=== PATIENT | female | born 1995 | race African-American/Black ===

== ENCOUNTER 2016-08-19 09:56 | Emergency (ER) | payer OTHER ==
[~2016-08-19] VITALS: Ht 167.6 cm; Wt 69.9 kg
[2016-08-19 10:12] VITALS: BP 116/70
== END 2016-08-19 11:21 | disposition left against medical advice (07) ==
LOC: ER 09:56
DX: N76.4 Abscess of vulva (principal); Z53.21 Procedure and treatment not carried out due to patient leaving prior to being seen by health care provider

== ENCOUNTER 2017-04-24 14:06 | Emergency (ER) | payer OTHER ==
[~2017-04-24] VITALS: Ht 167.6 cm; Wt 71.7 kg
[2017-04-24] MEDS ORDERED: diphenhydrAMINE 50 MG/ML VIAL IVP ONE (15:15)
[2017-04-24] MEDS ORDERED: METOCLOPRAMIDE HCL 10 MG/2 ML VIAL. IV ONE (15:15)
[2017-04-24] MEDS ORDERED: IV NORMAL SALINE 1000ML BAG 1,000 ML IV ONE (15:15)
[2017-04-24 15:19] LABS: BASO % 0 % (0-3); EOS % 1 % (0-3); HEMATOCRIT 36.9 % (36.0-47.0); HEMOGLOBIN 11.9 g/dL (12.0-15.5); LYMPH % 18 % (24-48); MEAN CORPUSCULAR HEMOGLOBIN 27 pg (25-35); MEAN CORPUSCULAR HGB CONC 32 g/dL (31-37); MEAN CORPUSCULAR VOLUME 82 fL (79-100); MONO % 8 % (0-9); NEUT % 73 % (31-73); PLATELET COUNT 206 x10^3/uL (140-400); RED BLOOD COUNT 4.48 x10^6/uL (3.50-5.40); RED CELL DISTRIBUTION WIDTH 13.4 % (11.5-14.5); WHITE BLOOD COUNT 10.9 x10^3/uL (4.0-11.0)
[2017-04-24 15:22] LABS: BILIRUBIN,URINE NEGATIVE (NEG); GLUCOSE,URINE NEGATIVE (NEG); NITRITE,URINE NEGATIVE (NEG); PROTEIN,URINE NEGATIVE (NEG-TRACE)
[2017-04-24 15:31] LABS: BACTERIA,URINE MODERATE /HPF (0-FEW); SQUAMOUS EPITHELIAL CELL,UR MOD /LPF
[2017-04-24 15:35] LABS: CALCIUM 8.8 mg/dL (8.5-10.1); CREATININE 0.5 mg/dL (0.6-1.0); POTASSIUM 3.7 mmol/L (3.5-5.1)
[2017-04-24 15:42] LABS: ALBUMIN 3.2 g/dL (3.4-5.0); DIRECT BILIRUBIN 0.1 mg/dL (0.0-0.2); TOTAL BILIRUBIN 0.2 mg/dL (0.2-1.0); TOTAL PROTEIN 6.7 g/dL (6.4-8.2)
--- NOTE | 2017-04-24 15:47 | PHYS DOC ---
Past Medical History Past Medical History: Other Additional Past Medical Histor: strep throat, preeclampsia Past Surgical History: No Surgical History Alcohol Use: None Drug Use: None Adult General Chief Complaint Chief Complaint: dizziness and h/a HPI HPI 22-year-old 4 wks by lmp on 01/16/17 presenting to the emergency department today with reported blurry vision bilaterally and mild headache with lightheadedness when she stands up. This is been going on for about 24-48 hours. She reports a history of preeclampsia and her previous . She denies nausea or vomiting. She reports eating a full meal at lunch around 12: 30. Blood sugar checked in the emergency department noted to be 60. Patient was given orange juice and a full meal here. Location generalized. Duration intermittent. No alleviating or exacerbating factors present. Patient reports 2 weeks ago she had an ultrasound that demonstrated the is in the uterus. I do not have documented confirmatory evidence of this in our charting system, but believe this to be the case. The patient denies vaginal bleeding or abdominal pain. Review of systems was negative for chest pain shortness of breath abdominal pain vaginal bleeding fevers or chills. All other review of systems is negative unless otherwise noted in history of present illness. ED course: 22-year-old female presenting to the emergency department today with dizziness bilateral blurred vision and a mild headache. On arrival the patient is afebrile with normal blood pressure (117/64). Otherwise unremarkable physical exam. See below. The patient was given IV fluids and oral enteric caloric challenge with a mildly low sugar. On reexamination the patient is feeling better. Urinalysis shows no protein in the urine. Bacteria present. I discussed the case with OB [Nabila]. She recommends following up with Dr. Dias in the next 3 days. Patient is prescribed oral Keflex for bacteria in the urine. Plan is to follow-up in clinic in the next 3 or 4 days. repeat bs improved after oral intake. The patient was then discharged home in stable condition to follow up with their primary care physician over the next 2-3 days. They were to return if their symptoms worsened or if they were concerned for any reason. [id number] discharge instructions and return precautions were given. Patient's questions were answered to their satisfaction. Patient is comfortable plan. Review of Systems Review of Systems SEE ABOVE. Current Medications Current Medications Current Medications Medications (Trade) Dose Ordered Sig/Griselda Start Time Stop Time Status Last Admin Dose Admin Diphenhydramine HCl (Benadryl) 25 mg 1X ONCE 04/24/17 15:15 04/24/17 15:16 DC Metoclopramide HCl (Reglan Vial) 10 mg 1X ONCE 04/24/17 15:15 04/24/17 15:16 DC Sodium Chloride 1,000 ml @ 1,000 mls/hr 1X ONCE 04/24/17 15:15 04/24/17 16:14 DC 04/24/17 15:25 1,000 MLS/HR Allergies Allergies Allergies Coded Allergies Type Severity Reaction Last Updated Verified No Known Drug Allergies 03/12/15 No Physical Exam Physical Exam SEE ABOVE Constitutional: Well developed, well nourished, no acute distress, non-toxic appearance. HENT: Normocephalic, atraumatic, bilateral external ears normal, oropharynx moist, no oral exudates, nose normal. [] Eyes: PERRLA, EOMI, conjunctiva normal, no discharge. [] Neck: Normal range of motion, no tenderness, supple, no stridor. Cardiovascular:Heart rate regular rhythm, no murmur [] Lungs & Thorax: Bilateral breath sounds clear to auscultation [] Abdomen: Bowel sounds normal, soft, no tenderness, no masses, no pulsatile masses. Skin: Warm, dry, no erythema, no rash. [] Back: No tenderness, no CVA tenderness. Extremities: No tenderness, no cyanosis, no clubbing, ROM intact, no edema. [] Neurologic: Mental status: Awake oriented and alert x3 Cranial nerves: Extraocular movements intact, eyebrows bahman bilaterally smile symmetric, uvula elevation, shoulder shrug intact, tongue protrusion normal DTRs: 2+ Sensation: equal and normal in all extremities Strength: 5/5 in upper and lower extremities bilaterally Psychologic: Affect normal, judgement normal, mood normal. [] Current Patient Data Vital Signs Vital Signs Date Time Temp Pulse Resp B/P (MAP) Pulse Ox O2 Delivery O2 Flow Rate FiO2 04/24/17 14:35 98.5 81 14 117/64 (81) 99 Room Air 98.5 Lab Values Laboratory Tests Test 04/24/17 14:30 04/24/17 15:10 04/24/17 15:18 04/24/17 16:29 Urine Collection Type Unknown Urine Color Yellow Urine Clarity Clear Urine pH 6.0 Urine Specific [place] 1.015 Urine Protein Negative mg/dL (NEG-TRACE) Urine Glucose (UA) Negative mg/dL (NEG) Urine Ketones (Stick) Negative mg/dL (NEG) Urine Blood Small (NEG) Urine Nitrite Negative (NEG) Urine Bilirubin Negative (NEG) Urine Urobilinogen Dipstick 1.0 mg/dL (0.2 mg/dL) Urine Leukocyte Esterase Moderate (NEG) Urine RBC 1-2 /HPF (0-2) Urine WBC 11-20 /HPF (0-4) Urine Squamous Epithelial Cells Mod /LPF Urine Bacteria Moderate /HPF (0-FEW) Urine Mucus Mod /LPF White Blood Count 10.9 x10^3/uL (4.0-11.0) Red Blood Count 4.48 x10^6/uL (3.50-5.40) Hemoglobin 11.9 g/dL (12.0-15.5) L Hematocrit 36.9 % (36.0-47.0) Mean Corpuscular Volume 82 fL (79-100) Mean Corpuscular Hemoglobin 27 pg (25-35) Mean Corpuscular Hemoglobin Concent 32 g/dL (31-37) Red Cell Distribution Width 13.4 % (11.5-14.5) Platelet Count 206 x10^3/uL (140-400) Neutrophils (%) (Auto) 73 % (31-73) Lymphocytes (%) (Auto) 18 % (24-48) L Monocytes (%) (Auto) 8 % (0-9) Eosinophils (%) (Auto) 1 % (0-3) Basophils (%) (Auto) 0 % (0-3) Neutrophils # (Auto) 7.9 x10^3uL (1.8-7.7) H Lymphocytes # (Auto) 2.0 x10^3/uL (1.0-4.8) Monocytes # (Auto) 0.9 x10^3/uL (0.0-1.1) Eosinophils # (Auto) 0.1 x10^3/uL (0.0-0.7) Basophils # (Auto) 0.0 x10^3/uL (0.0-0.2) Maternal Serum HCG Beta Subunit 97305 mIU/mL (0-5) H Sodium Level 137 mmol/L (136-145) Potassium Level 3.7 mmol/L (3.5-5.1) Chloride Level 102 mmol/L (98-107) Carbon Dioxide Level 28 mmol/L (21-32) Anion Gap 7 (6-14) Blood Urea Nitrogen 6 mg/dL (7-20) L Creatinine 0.5 mg/dL (0.6-1.0) L Estimated GFR (Cockcroft-Gault) 185.0 Glucose Level 69 mg/dL (70-99) L Calcium Level 8.8 mg/dL (8.5-10.1) Total Bilirubin 0.2 mg/dL (0.2-1.0) Direct Bilirubin 0.1 mg/dL (0.0-0.2) Aspartate Amino Transferase (AST) 16 U/L (15-37) Alanine Aminotransferase (ALT) 27 U/L (14-59) Alkaline Phosphatase 41 U/L (46-116) L Total Protein 6.7 g/dL (6.4-8.2) Albumin 3.2 g/dL (3.4-5.0) L Lipase 126 U/L (73-393) Glucose (Fingerstick) 60 mg/dL (70-99) L 74 mg/dL (70-99) Laboratory Tests 04/24/17 15:10 Laboratory Tests 04/24/17 15:10 EKG EKG [] Radiology/Procedures Radiology/Procedures [] Course & Med Decision Making Course & Med Decision Making Pertinent Labs and Imaging studies reviewed. (See chart for details) [] Dragon Disclaimer Dragon Disclaimer This electronic medical record was generated, in whole or in part, using a voice recognition dictation system. Departure Departure Impression: Primary Impression: Lightheadedness Additional Impression: Headache Disposition: HOME, SELF-CARE Condition: STABLE Referrals: LEILA AYALA APRN (PCP) DORIE DIAS Jr, MD Patient Instructions: Dizziness, [id number] Additional Instructions: Thank you for allowing us to participate in your care today. Followup with your OB Dr. Dias in 2-3 days if your symptoms do not improve. Call your Primary Doctor tomorrow and inform them of your visit today. If you do not have a primary care provider you can ask for a list of our primary care providers. Return to the emergency department you have any new or concerning findings. This should be evaluated by the primary care physician and any necessary consulting services for continued management within a few days after discharge. Return to emergency room if you have any new or concerning symptoms including but not limited to fever, chills, nausea, vomiting, intractable pain, any new rashes, chest pain, shortness of air, uncontrolled bleeding, difficulty breathing, and/or vision loss. Scripts Cephalexin (KEFLEX) 250 Mg Capsule 1 CAP PO QID, #28 CAP Prov: LUDA HARRELL MD 04/24/17 Problem Qualifiers LUDA HARRELL MD Apr 24, 2017 15:47
[2017-04-24 16:30] VITALS: BP 108/58
[2017-04-24] MEDS ORDERED: CEPH-263 PO (16:37)
== END 2017-04-24 16:50 | disposition home or self-care (01) ==
LOC: ER 14:06
DX: O26.891 Other specified pregnancy related conditions, first trimester (principal); R42 Dizziness and giddiness; R51 Headache; H53.8 Other visual disturbances; Z3A.00 Weeks of gestation of pregnancy not specified
CPT/HCPCS: 36415; 80048; 80076; 81001; 82962; 83690; 84702; 85025; 86900; 86901; 87086; 96360; 99284; J7030

== ENCOUNTER 2017-05-08 20:35 | Emergency (ER) | payer OTHER ==
[~2017-05-08] VITALS: Ht 162.6 cm; Wt 71.7 kg
[~2017-05-08 20:35] MED LIST: CEPH-263 PO
[2017-05-08 21:00] VITALS: BP 109/56
[2017-05-08] MEDS ORDERED: IV NORMAL SALINE 1000ML BAG 1,000 ML IV ONE (21:00)
--- NOTE | 2017-05-08 21:07 | PHYS DOC ---
Past Medical History Past Medical History: No Pertinent History, Other Additional Past Medical Histor: strep throat, preeclampsia Past Surgical History: No Surgical History Alcohol Use: None Drug Use: None Adult General Chief Complaint Chief Complaint: DIZZY/LIGHT HEADED HPI HPI Patient is a 22 year old female presents to the emergency department with complaints of dizziness. Patient was I waited in the emergency department for same complaint on April 24. At that time she was discharged home with plan to follow-up Dr. Flynn. She did follow-up with whom patient reports full her to eat small frequent meals. Patient states she's continued to have dizziness and is seeking evaluation. She denies headache, blurred vision, double vision, loss of vision, nausea, vomiting, chest pain, abdominal pain, diarrhea, vaginal discharge or bleeding. His last normal menstrual period was a 12/09/16, she is 16 weeks gestation with estimated date of confinement of September. She is a 2 para 1. Review of Systems Review of Systems Constitutional: Denies fever or chills [] Eyes: Denies change in visual acuity, redness, or eye pain [] HENT: Denies nasal congestion or sore throat [] Respiratory: Denies cough or shortness of breath [] Cardiovascular: No additional information not addressed in HPI [] GI: Denies abdominal pain, nausea, vomiting, bloody stools or diarrhea [] : Denies dysuria or hematuria [] Musculoskeletal: Denies back pain or joint pain [] Integument: Denies rash or skin lesions [] Neurologic: Complains of dizziness Denies headache, focal weakness or sensory changes [] Endocrine: Denies polyuria or polydipsia [] All other systems were reviewed and found to be within normal limits, except as documented in this note. Current Medications Current Medications Current Medications Medications (Trade) Dose Ordered Sig/Griselda Start Time Stop Time Status Last Admin Dose Admin Potassium Chloride (Klor-Con) 40 meq 1X ONCE 05/08/17 21:30 05/08/17 21:31 UNV Sodium Chloride 1,000 ml @ 1,000 mls/hr 1X ONCE 05/08/17 21:00 05/08/17 21:59 05/08/17 21:13 1,000 MLS/HR Allergies Allergies Allergies Coded Allergies Type Severity Reaction Last Updated Verified No Known Drug Allergies 10/18/15 No Physical Exam Physical Exam Constitutional: Well developed, well nourished, no acute distress, non-toxic appearance. [] HENT: Normocephalic, atraumatic, bilateral external ears normal, oropharynx moist, no oral exudates, nose normal. [] Eyes: PERRLA, EOMI, conjunctiva normal, no discharge. [] Neck: Normal range of motion, no midline or paracervical tenderness, supple without lymphadenopathy, no stridor. [] Cardiovascular:Heart rate regular rhythm, no murmur [] Lungs & Thorax: Bilateral breath sounds clear to auscultation [] Abdomen: Bowel sounds normal, soft, no tenderness, no masses, no pulsatile masses. Gravid uterus palpated 3 fingerbreadths beneath the umbilicus [] Skin: Warm, dry, no erythema, no rash. [] Back: No tenderness, no CVA tenderness. [] Extremities: No tenderness, no cyanosis, no clubbing, ROM intact, no edema. [] Neurologic: Alert and oriented X 3, normal motor function, normal sensory function, no focal deficits noted. Cranial nerves II through XII are grossly intact [] Psychologic: Affect normal, judgement normal, mood normal. [] Current Patient Data Vital Signs Vital Signs Date Time Temp Pulse Resp B/P (MAP) Pulse Ox O2 Delivery O2 Flow Rate FiO2 05/08/17 20:47 98.5 92 19 128/64 (85) 100 Room Air 98.5 Lab Values Laboratory Tests Test 05/08/17 20:15 05/08/17 20:35 05/08/17 20:49 White Blood Count 10.6 x10^3/uL (4.0-11.0) Red Blood Count 4.64 x10^6/uL (3.50-5.40) Hemoglobin 12.4 g/dL (12.0-15.5) Hematocrit 38.2 % (36.0-47.0) Mean Corpuscular Volume 82 fL (79-100) Mean Corpuscular Hemoglobin 27 pg (25-35) Mean Corpuscular Hemoglobin Concent 32 g/dL (31-37) Red Cell Distribution Width 13.4 % (11.5-14.5) Platelet Count 183 x10^3/uL (140-400) Neutrophils (%) (Auto) 83 % (31-73) H Lymphocytes (%) (Auto) 11 % (24-48) L Monocytes (%) (Auto) 6 % (0-9) Eosinophils (%) (Auto) 1 % (0-3) Basophils (%) (Auto) 0 % (0-3) Neutrophils # (Auto) 8.8 x10^3uL (1.8-7.7) H Lymphocytes # (Auto) 1.1 x10^3/uL (1.0-4.8) Monocytes # (Auto) 0.6 x10^3/uL (0.0-1.1) Eosinophils # (Auto) 0.1 x10^3/uL (0.0-0.7) Basophils # (Auto) 0.0 x10^3/uL (0.0-0.2) Sodium Level 139 mmol/L (136-145) Potassium Level 3.3 mmol/L (3.5-5.1) L Chloride Level 102 mmol/L (98-107) Carbon Dioxide Level 28 mmol/L (21-32) Anion Gap 9 (6-14) Blood Urea Nitrogen 5 mg/dL (7-20) L Creatinine 0.4 mg/dL (0.6-1.0) L Estimated GFR (Cockcroft-Gault) 239.3 BUN/Creatinine Ratio 13 (6-20) Glucose Level 78 mg/dL (70-99) Calcium Level 8.6 mg/dL (8.5-10.1) Total Bilirubin 0.4 mg/dL (0.2-1.0) Aspartate Amino Transferase (AST) 30 U/L (15-37) Alanine Aminotransferase (ALT) 41 U/L (14-59) Alkaline Phosphatase 52 U/L (46-116) Total Protein 6.6 g/dL (6.4-8.2) Albumin 3.1 g/dL (3.4-5.0) L Albumin/Globulin Ratio 0.9 (1.0-1.7) L Urine Collection Type Unknown Urine Color Yellow Urine Clarity Turbid Urine pH 7.5 Urine Specific [place] 1.015 Urine Protein Negative mg/dL (NEG-TRACE) Urine Glucose (UA) Negative mg/dL (NEG) Urine Ketones (Stick) Negative mg/dL (NEG) Urine Blood Trace (NEG) Urine Nitrite Negative (NEG) Urine Bilirubin Negative (NEG) Urine Urobilinogen Dipstick 1.0 mg/dL (0.2 mg/dL) Urine Leukocyte Esterase Moderate (NEG) Urine RBC Occ /HPF (0-2) Urine WBC 5-10 /HPF (0-4) Urine Squamous Epithelial Cells Few /LPF Urine Amorphous Sediment Present /HPF Urine Bacteria Few /HPF (0-FEW) Urine Mucus Slight /LPF POC Urine HCG, Qualitative Hcg positive (Negative) Laboratory Tests 05/08/17 20:15 Laboratory Tests 05/08/17 20:15 EKG EKG [] Radiology/Procedures Radiology/Procedures [] Course & Med Decision Making Course & Med Decision Making Pertinent Labs and Imaging studies reviewed. (See chart for details) []Patient's potassium was 3.3, she was given a supplement 40 mEq by mouth 1 in the emergency department. Her urinalysis had WBCs of 5-10. Patient states that she was diagnosed with a UTI at her last visit on April 24 and was prescribed cephalexin. She states she cannot take the medication as directed because it was not convenient to take the medicine 4 times a day. She reports she feels better after the IV normal saline, 1 L. She will be prescribed Macrobid 1 by mouth twice a day #20 no refills. She has an appointment for reevaluation on the with Dr. Flynn. Have encouraged her to keep this appointment. She is return the emergency Department for new symptoms or concerns or worsening of current condition. Dragon Disclaimer Dragon Disclaimer This electronic medical record was generated, in whole or in part, using a voice recognition dictation system. Departure Departure Impression: Primary Impression: UTI (lower urinary tract infection) Additional Impression: Hypokalemia Disposition: HOME, SELF-CARE Condition: STABLE Referrals: LEILA AYALA APRN (PCP) Patient Instructions: Hypokalemia, Urinary Tract Infection Scripts Nitrofurantoin Monohyd/M-Cryst (MACROBID 100 MG CAPSULE) 100 Mg Capsule 1 CAP PO BID, #20 CAP Prov: CORBIN AVENDANO APRN 05/08/17 Problem Qualifiers CORBIN AVENDANO APRN May 08, 2017 21:07
[2017-05-08 21:15] LABS: BASO % 0 % (0-3); EOS % 1 % (0-3); HEMATOCRIT 38.2 % (36.0-47.0); HEMOGLOBIN 12.4 g/dL (12.0-15.5); LYMPH # 1.1 x10^3/uL (1.0-4.8); LYMPH % 11 % (24-48); MEAN CORPUSCULAR HEMOGLOBIN 27 pg (25-35); MEAN CORPUSCULAR HGB CONC 32 g/dL (31-37); MEAN CORPUSCULAR VOLUME 82 fL (79-100); MONO % 6 % (0-9); NEUT % 83 % (31-73); PLATELET COUNT 183 x10^3/uL (140-400); RED BLOOD COUNT 4.64 x10^6/uL (3.50-5.40); RED CELL DISTRIBUTION WIDTH 13.4 % (11.5-14.5); WHITE BLOOD COUNT 10.6 x10^3/uL (4.0-11.0)
[2017-05-08 21:15] LABS: BILIRUBIN,URINE NEGATIVE (NEG); GLUCOSE,URINE NEGATIVE (NEG); NITRITE,URINE NEGATIVE (NEG); PH,URINE 7.5; PROTEIN,URINE NEGATIVE (NEG-TRACE)
[2017-05-08 21:20] LABS: BACTERIA,URINE FEW /HPF (0-FEW); RBC,URINE OCC /HPF (0-2); SQUAMOUS EPITHELIAL CELL,UR FEW /LPF
[2017-05-08 21:22] LABS: CALCIUM 8.6 mg/dL (8.5-10.1); CREATININE 0.4 mg/dL (0.6-1.0); GFR 239.3; POTASSIUM 3.3 mmol/L (3.5-5.1)
[2017-05-08 21:28] LABS: ALBUMIN 3.1 g/dL (3.4-5.0); ALBUMIN/GLOBULIN RATIO 0.9 (1.0-1.7); TOTAL BILIRUBIN 0.4 mg/dL (0.2-1.0); TOTAL PROTEIN 6.6 g/dL (6.4-8.2)
[2017-05-08] MEDS ORDERED: POTASSIUM CHLORIDE 20 MEQ TABLET.ER. PO ONE (21:30)
[2017-05-08] MEDS ORDERED: NITR100C62 PO (21:32)
== END 2017-05-08 21:51 | disposition home or self-care (01) ==
LOC: ER 20:35
DX: O23.42 Unspecified infection of urinary tract in pregnancy, second trimester (principal); O99.282 Endocrine, nutritional and metabolic diseases complicating pregnancy, second trimester; E87.6 Hypokalemia; Z3A.16 16 weeks gestation of pregnancy
CPT/HCPCS: 36415; 80053; 81001; 81025; 85025; 87086; 96360; 99284; J7030

== ENCOUNTER → 2017-06-04 | Outpatient (CLI) | payer OTHER | END | disposition home or self-care (01) | LOC: KCIC US 13:37 | DX: O09.92 Supervision of high risk pregnancy, unspecified, second trimester (principal); O26.842 Uterine size-date discrepancy, second trimester; Z3A.21 21 weeks gestation of pregnancy | CPT/HCPCS: 76805 ==

== ENCOUNTER 2017-08-19 08:38 | Observation (INO) | payer OTHER | END 2017-08-19 14:06 | disposition home or self-care (01) | LOC: 3 SO LND 08:38 | DX: O36.8130 Decreased fetal movements, third trimester, not applicable or unspecified (principal); Z3A.32 32 weeks gestation of pregnancy | CPT/HCPCS: 59025; G0378; G0379 ==

== ENCOUNTER 2018-08-09 17:07 | Emergency (ER) | payer OTHER ==
[~2018-08-09] VITALS: Ht 165.1 cm; Wt 72.6 kg
[~2018-08-09 17:07] MED LIST changes: +NITR100C62 PO
[2018-08-09 17:30] VITALS: BP 119/56
[2018-08-09] MEDS ORDERED: NYST15CR TP (18:26)
--- NOTE | 2018-08-09 18:27 | PHYS DOC ---
Past Medical History Past Medical History: No Pertinent History, Other Additional Past Medical Histor: strep throat, preeclampsia Past Surgical History: No Surgical History Alcohol Use: None Drug Use: None Adult General Chief Complaint Chief Complaint: Sore nipples HPI HPI Patient is a 23 year old female who presents to the emergency department with complaints of sore nipples and cracked skin of nipples due to breast-feeding. She denies any fever, redness, warmth, or drainage. She denies any itching. Review of Systems Review of Systems Constitutional: Denies fever or chills [] Eyes: Denies change in visual acuity, redness, or eye pain [] HENT: Denies nasal congestion or sore throat [] Respiratory: Denies cough or shortness of breath [] Breasts: See HPI GI: Denies abdominal pain, nausea, vomiting,or diarrhea [] Integument: See HPI Neurologic: Denies headache, focal weakness or sensory changes [] Allergies Allergies Allergies Coded Allergies Type Severity Reaction Last Updated Verified No Known Drug Allergies 03/12/15 No Physical Exam Physical Exam Constitutional: Well developed, well nourished, no acute distress, non-toxic appearance. [] HENT: Normocephalic, atraumatic, bilateral external ears normal, nose normal. [] Eyes: conjunctiva normal, no discharge. [] Neck: Normal range of motion, no stridor. [] Lungs & Thorax: respirations even and unlabored, no retractions, no distress Skin: Warm, dry, no erythema, no rash; cracking and scabbing noted to right nipple of breast mild erythema no drainage concerning for thrush[] Extremities: No cyanosis, ROM intact, no edema, no deformities. Neurologic: Alert and oriented X 3, no focal deficits noted. [] Psychologic: Affect normal, judgement normal, mood normal. [] EKG EKG [] Radiology/Procedures Radiology/Procedures [] Course & Med Decision Making Course & Med Decision Making Pertinent Labs and Imaging studies reviewed. (See chart for details) [] Dragon Disclaimer Dragon Disclaimer This electronic medical record was generated, in whole or in part, using a voice recognition dictation system. Departure Departure Impression: Primary Impression: Thrush Disposition: 01 HOME, SELF-CARE Condition: STABLE Referrals: UNKNOWN PCP NAME (PCP) Patient Instructions: Thrush, Adult, [id number] Additional Instructions: Fill the prescription and use as directed. Follow up with your primary care doctor this week, return to the ER if symptoms worsen. Scripts Nystatin (NYSTATIN) 15 Gm Cream..g. 1 MESFIN TP BID for 10 Days, #30 GM 0 Refills Prov: LEAH THOMAS APRN 08/09/18 LEAH THOMAS APRN Aug 09, 2018 18:27
== END 2018-08-09 19:05 | disposition home or self-care (01) ==
LOC: ER 17:07
DX: B37.9 Candidiasis, unspecified (principal)
CPT/HCPCS: 96361; 96374; 96375; 99283; 99284-25